=== PATIENT | female | born 1990 | race Caucasian/White ===

== ENCOUNTER 2019-09-02 03:58 | Emergency (ER) | payer OTHER ==
[~2019-09-02] VITALS: Ht 157.5 cm; Wt 85.3 kg
[~2019-09-02 03:58] MED LIST: GUAIFENESIN-COD10 ML PO; NYQUIL
== END 2019-09-02 08:45 | disposition home or self-care (01) ==
LOC: ED 03:58
DX: R10.2 Pelvic and perineal pain (principal); Z88.5 Allergy status to narcotic agent
CPT/HCPCS: 76830; 76856; 80053; 81001; 84703; 85025; 96361; 96374; 96375; 99284-25; C9803; J1885; J2765; J7030; U0002

== ENCOUNTER 2019-09-15 03:39 | Emergency (ER) | payer OTHER ==
[~2019-09-15] VITALS: Ht 157.5 cm; Wt 85.3 kg
[~2019-09-15 03:39] MED LIST changes: +PRILOSEC OTC20 MG PO; +SERTRALINE HCL50 MG
--- OUTSIDE RECORDS SUMMARY | 2019-09-15 03:42 | XMS ---
PreManage Notification: ARNOL EASTON Security Sales Attendant Building Materials Events No recent Security Events currently on file CRITERIA MET - [facility] - 2 Visits in 30 Days CARE PROVIDERS TAWNY HART Physician Stock Worker 09/13/2019-Current PHONE: Unknown Juan Miguel has no Care Guidelines for this patient. [place] VISIT COUNT (12 MO.) 3 [facility] TOTAL 3 NOTE: Visits indicate total known visits. ED/UCC VISIT TRACKING (12 MO.) 09/15/2019 03:40 [facility] [place] TYPE: Emergency COMPLAINT: - ANXIETY ATTACK 09/12/2019 09:55 [facility] Barriga [place] TYPE: Emergency COMPLAINT: - ABD PAIN 09/02/2019 03:59 [facility] Barriga [place] TYPE: Emergency COMPLAINT: - ABD PAIN DIAGNOSES: - Pelvic and perineal pain - Allergy status to narcotic agent status - Unspecified abdominal pain INPATIENT VISIT TRACKING (12 MO.) No inpatient visits to display in this time frame [id number]
[2019-09-15] MEDS ORDERED: DICYCLOMINE HCL20 MG PO (03:55)
== END 2019-09-15 04:56 | disposition home or self-care (01) ==
LOC: ED 03:39
DX: G47.00 Insomnia, unspecified (principal); Z88.8 Allergy status to other drugs, medicaments and biological substances; Z88.5 Allergy status to narcotic agent; Z79.899 Other long term (current) drug therapy
CPT/HCPCS: 99283

== ENCOUNTER 2020-06-23 08:01 | Emergency (ER) | payer OTHER ==
[~2020-06-23] VITALS: Ht 157.5 cm; Wt 88.5 kg
[~2020-06-23 08:01] MED LIST changes: +DICYCLOMINE HCL20 MG PO; +LORAZEPAM1 MG PO; +MULTI-VITAMIN1 EACH PO; +PROBIOTIC1 EAC7 PO; +VITAMIN D250 MCG PO; +ZYRTEC10 MG PO
--- OUTSIDE RECORDS SUMMARY | 2020-06-23 08:04 | XMS ---
PreManage Notification: ARNOL EASTON Security Charter Representative Events No recent Security Events currently on file CRITERIA MET - [employer] CARE PROVIDERS TAWNY HART Physician Criminal Justice Lawyer 09/13/2019-Current PHONE: Unknown Juan Miguel has no Care Guidelines for this patient. [place] VISIT COUNT (12 MO.) 4 [facility] Maria TOTAL 4 NOTE: Visits indicate total known visits. ED/UCC VISIT TRACKING (12 MO.) 06/23/2020 08:02 [facility] Barriga [place] TYPE: Emergency COMPLAINT: - VAGINAL ISSUES 09/15/2019 03:40 [facility] Barriga [place] TYPE: Emergency COMPLAINT: - ANXIETY ATTACK DIAGNOSES: - Tachycardia, unspecified - Insomnia, unspecified - Other middle or intermediate school principal (current) drug therapy - Allergy status to narcotic agent - Allergy status to other drugs, medicaments and biological substances 09/12/2019 09:55 [facility] Barriga [place] TYPE: Emergency COMPLAINT: - ABD PAIN DIAGNOSES: - Other long-term (current) drug therapy - Gastro-esophageal reflux disease without esophagitis - Diarrhea, unspecified - Allergy status to narcotic agent - Upper abdominal pain, unspecified 09/02/2019 03:59 [facility] Barriga [place] TYPE: Emergency COMPLAINT: - ABD PAIN DIAGNOSES: - Pelvic and perineal pain - Allergy status to narcotic agent - Contact with and (suspected) exposure to other viral communicable diseases - Unspecified abdominal pain INPATIENT VISIT TRACKING (12 MO.) No inpatient visits to display in this time frame [id number]
== END 2020-06-23 08:55 | disposition home or self-care (01) ==
LOC: ED 08:01
DX: T19.2XXA Foreign body in vulva and vagina, initial encounter (principal); Z88.8 Allergy status to other drugs, medicaments and biological substances; Z88.5 Allergy status to narcotic agent; Z79.899 Other long term (current) drug therapy
CPT/HCPCS: 99283

== ENCOUNTER 2020-07-22 15:48 | Emergency (ER) | payer OTHER ==
[~2020-07-22] VITALS: Ht 157.5 cm; Wt 90.7 kg
--- OUTSIDE RECORDS SUMMARY | 2020-07-22 15:52 | XMS ---
PreManage Notification: ARNOL EASTON Security Manager Business Events No recent Security Events currently on file CRITERIA MET - [facility] [place] - 2 Visits in 30 Days CARE PROVIDERS TAWNY HART Physician Disc Pad Plate Filler 09/13/2019-Current PHONE: Unknown Juan Miguel has no Care Guidelines for this patient. [place] VISIT COUNT (12 MO.) 5 [facility] TOTAL 5 NOTE: Visits indicate total known visits. ED/UCC VISIT TRACKING (12 MO.) 07/22/2020 15:49 [facility] Barriga [place] TYPE: Emergency COMPLAINT: - BLOOD IN STOOL,HEAD PREASURE 06/23/2020 08:02 JA[facility] Barriga [place] TYPE: Emergency COMPLAINT: - VAGINAL ISSUES DIAGNOSES: - Foreign body in vulva and vagina, initial encounter - Other jail (current) drug therapy - Abnormal uterine and vaginal bleeding, unspecified - Allergy status to other drugs, medicaments and biological substances - Allergy status to narcotic agent - Foreign body in vulva and vagina, initial encounter 09/15/2019 03:40 JA[facility] Barriga [place] TYPE: Emergency COMPLAINT: - ANXIETY ATTACK DIAGNOSES: - Tachycardia, unspecified - Insomnia, unspecified - Other buttermilk drier operator (current) drug therapy - Allergy status to narcotic agent - Allergy status to other drugs, medicaments and biological substances 09/12/2019 09:55 JA[facility] Barriga [place] TYPE: Emergency COMPLAINT: - ABD PAIN DIAGNOSES: - Other buttermilk drier operator (current) drug therapy - Gastro-esophageal reflux disease [...] visits to display in this time frame [id number]
[2020-07-22] MEDS ORDERED: ONDANSETRON ODT8 MG PO (19:49)
== END 2020-07-22 20:17 | disposition home or self-care (01) ==
LOC: ED 15:48
DX: B34.9 Viral infection, unspecified (principal); H83.09 Labyrinthitis, unspecified ear; Z20.822 Contact with and (suspected) exposure to COVID-19; Z88.8 Allergy status to other drugs, medicaments and biological substances; Z88.5 Allergy status to narcotic agent; Z79.899 Other long term (current) drug therapy
CPT/HCPCS: 80053; 81001; 84703; 85025; 96361; 96374; 96375; 99284-25; C9803; J1885; J2405; J7030; U0003

== ENCOUNTER 2020-08-23 11:26 | Emergency (ER) | payer OTHER ==
[~2020-08-23] VITALS: Ht 157.5 cm; Wt 88.5 kg
[~2020-08-23 11:26] MED LIST changes: +ONDANSETRON ODT8 MG PO
--- OUTSIDE RECORDS SUMMARY | 2020-08-23 11:28 | XMS ---
PreManage Notification: ARNOL EASTON Security Route Relief Driver Events No recent Security Events currently on file CRITERIA MET - [employer] CARE PROVIDERS TAWNY HART Physician Wind Turbine Controls Engineer 09/13/2019-Current PHONE: Unknown Juan Miguel has no Care Guidelines for this patient. [place] VISIT COUNT (12 MO.) 6 [facility] Maria TOTAL 6 NOTE: Visits indicate total known visits. ED/UCC VISIT TRACKING (12 MO.) 08/23/2020 11:27 [facility] Barriga [place] TYPE: Emergency COMPLAINT: - HEAVY VAGINAL BLEEDING 07/22/2020 15:49 JA[facility] Barriga [place] TYPE: Emergency COMPLAINT: - BLOOD IN STOOL,HEAD PREASURE DIAGNOSES: - Viral infection, unspecified - Weakness - Other jail (current) drug therapy - Allergy status to other drugs, medicaments and biological substances - Allergy status to narcotic agent - Labyrinthitis, unspecified ear 06/23/2020 08:02 [facility] Barriga [place] TYPE: Emergency [...] Tachycardia, unspecified - Insomnia, unspecified - Other keno terminal operator (current) drug therapy - Allergy status to narcotic agent - Allergy status to other drugs, medicaments and biological substances 09/12/2019 09:55 JA[facility] Barriga [place] TYPE: Emergency COMPLAINT: - ABD PAIN DIAGNOSES: - Other keno terminal operator (current) drug therapy - Gastro-esophageal reflux [...] visits to display in this time frame [id number]
[2020-08-23] MEDS ORDERED: TRI-LO-MILI TA1 EACH PO (12:07)
[2020-08-23] MEDS ORDERED: ATIVAN1 MG PO (12:08)
[2020-08-23] MEDS ORDERED: TRANEXAMIC ACI650 MG PO (16:37)
== END 2020-08-23 17:42 | disposition home or self-care (01) ==
LOC: ED 11:26
DX: N93.8 Other specified abnormal uterine and vaginal bleeding (principal); Z88.8 Allergy status to other drugs, medicaments and biological substances; Z88.5 Allergy status to narcotic agent; Z79.899 Other long term (current) drug therapy
CPT/HCPCS: 76830; 76856; 80048; 81001; 84703; 85025; 96374; 96375; 99284-25; J1885; J7030